=== PATIENT | male | born 1985 | race Caucasian/White ===

== ENCOUNTER 2019-09-08 14:46 | Emergency (ER) | payer OTHER, MEDICAID ==
[2019-09-08 15:06] VITALS: BP 118/70
--- NOTE | 2019-09-08 16:01 | ED ---
Respiratory - HPI Summary HPI Summary: 34 yr old male with the complaint of cough, runny nose, hoarse voice. Onset of symptoms about a week ago. He denies fever and chills. No SOB. No CP. He came in due to losing his voice and getting hoarse. His symptoms are moderate. he works making bottles. - History of Current Complaint Chief Complaint: UCRespiratory Stated Complaint: LOSING VOICE,CONGESTION Time Seen by Provider: 09/08/19 15:52 Pain Intensity: 0 - Allergy/Home Medications Allergies/Adverse Reactions: Allergies Allergy/AdvReac Type Severity Reaction Status Date / Time No Known Allergies Allergy Verified 09/08/19 15:01 PMH/Surg Hx/FS Hx/Imm Hx GI History: Reports: Hx Ulcer Infectious Disease History: No Infectious Disease History: Denies: Traveled Outside the [place] in Last 30 Days - Family History Known Family History: Positive: None - Social History Alcohol Use: None Substance Use Type: Reports: None Smoking Status (MU): Never Smoked Tobacco Review of Systems Constitutional: Negative Positive: Other - hoarse voice Positive: Cough All Other Systems Reviewed And Are Negative: Yes Physical Exam Triage Information Reviewed: Yes Vital Signs On Initial Exam: Initial Vitals Temp Pulse Resp BP Pulse Ox 97.8 F 69 16 118/70 99 09/08/19 15:02 09/08/19 15:02 09/08/19 15:02 09/08/19 15:02 09/08/19 15:02 Vital Signs Reviewed: Yes Appearance: Positive: Well-Appearing, No Pain Distress Skin: Positive: Warm, Skin Color Reflects Adequate Perfusion Head/Face: Positive: Normal Head/Face Inspection ENT: Positive: Pharynx normal, Nasal congestion, Nasal drainage, TMs normal, Hoarse voice, Uvula midline. Negative: Trismus, Muffled voice Neck: Positive: Nontender Respiratory/Lung Sounds: Positive: Clear to Auscultation, Breath Sounds Present Cardiovascular: Positive: RRR. Negative: Murmur Abdomen Description: Negative: Distended Musculoskeletal: Positive: Strength/ROM Intact Neurological: Positive: Sensory/Motor Intact, Alert, Oriented to Person Place, Time, CN Intact II-III, Normal Gait, Speech Normal Psychiatric: Positive: Normal Diagnostics - Vital Signs Vital Signs Temp Pulse Resp BP Pulse Ox 09/08/19 15:02 97.8 F 69 16 118/70 99 - Laboratory Lab Statement: Any lab studies that have been ordered have been reviewed, and results considered in the medical decision making process. Disposition - Course Course Of Treatment: 34 yrold with cough and laryngitis. Rx with prednisone. FU with PMD. - Diagnoses Provider Diagnoses: Laryngitis Discharge ED - Sign-Out/Discharge Documenting (check all that apply): Patient Departure All imaging exams completed and their final reports reviewed: No Studies - Discharge Plan Condition: Good Disposition: HOME Prescriptions: predniSONE TAB* [Deltasone 20 MG TAB*] 40 mg PO DAILY #6 tab Patient Education Materials: Laryngitis (ED) Referrals: Juno Madison PA [Primary Care Provider] - 2 Days - Billing Disposition and Condition Condition: GOOD Disposition: Home
== END 2019-09-08 16:02 | disposition home or self-care (01) ==
LOC: UCCORT 14:46
DX: J04.0 Acute laryngitis (principal)
CPT/HCPCS: 99202; G0463